=== PATIENT | female | born 1995 | race Caucasian/White ===

== ENCOUNTER 2023-10-09 09:16 | Emergency (ER) | payer MEDICAID ==
[2023-10-09] MEDS: Ketorolac 30 MG/ML SDV IM ONE (10:18)
== END 2023-10-09 10:29 | disposition home or self-care (01) ==
LOC: FB.ED 09:16
DX: J02.0 Streptococcal pharyngitis (principal); Z79.899 Other long term (current) drug therapy
CPT/HCPCS: 36415; 86308; 87651; 96372; 99283; J1885

== ENCOUNTER 2023-10-26 15:48 | Emergency (ER) | payer MEDICAID | END 2023-10-26 17:07 | disposition home or self-care (01) | LOC: FB.ED 15:48 | DX: S63.501A Unspecified sprain of right wrist, initial encounter (principal); W20.8XXA Other cause of strike by thrown, projected or falling object, initial encounter | CPT/HCPCS: 29125; 73110-RT; 99283-25; 99284 ==

== ENCOUNTER 2024-07-09 12:22 | Emergency (ER) | payer MEDICAID | END 2024-07-09 13:12 | disposition home or self-care (01) | LOC: FB.ED 12:22 | DX: L60.0 Ingrowing nail (principal); L03.032 Cellulitis of left toe; Z79.899 Other long term (current) drug therapy | CPT/HCPCS: 99283 ==

== ENCOUNTER 2025-03-13 17:53 | Emergency (ER) | payer BC | END 2025-03-13 18:35 | disposition home or self-care (01) | LOC: FB.ED 17:53 | DX: S93.505A Unspecified sprain of left lesser toe(s), initial encounter (principal); Z79.899 Other long term (current) drug therapy; W23.1XXA Caught, crushed, jammed, or pinched between stationary objects, initial encounter; Y93.89 Activity, other specified | CPT/HCPCS: 73660-T4; 99283 ==